=== PATIENT | male | born 1985 | race African-American/Black ===

== ENCOUNTER 2016-09-15 06:09 | Emergency (ER) | payer SELFPAY ==
[~2016-09-15] VITALS: Ht 175.3 cm; Wt 68.2 kg
[2016-09-15 06:17] VITALS: BP 123/81; PULSE 69; TEMP 98.4
== END 2016-09-15 07:41 | disposition home or self-care (01) ==
LOC: COL.ER 06:09
DX: L50.0 Allergic urticaria (principal)
CPT/HCPCS: J7512

== ENCOUNTER 2016-10-02 11:59 | Emergency (ER) | payer SELFPAY ==
[~2016-10-02] VITALS: Ht 185.4 cm; Wt 68.2 kg
[2016-10-02 12:10] VITALS: BP 105/65; PULSE 75; TEMP 98
[2016-10-02] MEDS ORDERED: NORCO 325 MG-51 TAB PO (13:02)
[2016-10-02] MEDS ORDERED: DOXYCYCLINE 10100 MG PO (13:02)
== END 2016-10-02 13:13 | disposition home or self-care (01) ==
LOC: COL.ER 11:59
DX: T81.4XXA Infection following a procedure, initial encounter (principal); F17.210 Nicotine dependence, cigarettes, uncomplicated

== ENCOUNTER 2018-03-14 12:53 | Emergency (ER) | payer SELFPAY ==
[~2018-03-14] VITALS: Ht 175.3 cm; Wt 63.6 kg
[~2018-03-14 12:53] MED LIST: DOXYCYCLINE 10100 MG PO; NORCO 325 MG-51 TAB PO
[2018-03-14 12:59] VITALS: TEMP 98.5
[2018-03-14] MEDS ORDERED: NORCO 325 MG-51 TAB PO (14:47)
[2018-03-14 15:28] VITALS: BP 126/88; PULSE 87
== END 2018-03-14 15:28 | disposition home or self-care (01) ==
LOC: COL.ER 12:53
DX: S02.2XXA Fracture of nasal bones, initial encounter for closed fracture (principal); S05.02XA Injury of conjunctiva and corneal abrasion without foreign body, left eye, initial encounter; F17.210 Nicotine dependence, cigarettes, uncomplicated; V17.4XXA Pedal cycle driver injured in collision with fixed or stationary object in traffic accident, initial encounter; Y92.410 Unspecified street and highway as the place of occurrence of the external cause
CPT/HCPCS: J3010; J7030